=== PATIENT | male | born 1995 | race African-American/Black ===

== ENCOUNTER 2019-08-10 18:34 | Emergency (ER) | payer SELFPAY ==
[~2019-08-10] VITALS: Ht 172.7 cm; Wt 67.1 kg
[2019-08-10 18:39] VITALS: BP 140/63
[2019-08-10] MEDS ORDERED: POLY10DR OS (19:01)
--- NOTE | 2019-08-10 19:02 | PHYS DOC ---
Past Medical History Past Medical History: No Pertinent History Past Surgical History: No Surgical History Smoking Status: Never Smoker Alcohol Use: None Drug Use: None General Adult EDM: Chief Complaint: EYE PROBLEMS HPI: HPI: Patient is a 24 year old male who presents with left eye redness that started today. Patient reports that eye is itchy. He denies injury, crusting or drainage, pain, vision changes, headache or fever. Patient reports that he has been using Visine at home that has helped relieve redness and itching. Patient reports that nothing makes his symptoms worse. He reports that he called into work for this symptom and is needing a work note. Review of Systems: Review of Systems: Complete review of systems is negative unless otherwise documented in the HPI. Heart Score: Risk Factors: Risk Factors: DM, Current or recent (<one month) smoker, HTN, HLP, family history of CAD, obesity. Risk Scores: Score 0 - 3: 2.5% MACE over next 6 weeks - Discharge Home Score 4 - 6: 20.3% MACE over next 6 weeks - Admit for Clinical Observation Score 7 - 10: 72.7% MACE over next 6 weeks - Early Invasive Strategies Allergies: Allergies: Allergies Coded Allergies Type Severity Reaction Last Updated Verified No Known Drug Allergies 11/26/13 No Physical Exam: PE: Constitutional: Well developed, well nourished, no acute distress, non-toxic appearance. [] HENT: Normocephalic, atraumatic, bilateral external ears normal, oropharynx moist, no oral exudates, nose normal. [] Eyes: PERRLA, EOMI; right eye conjunctiva are normal, no drainage; left eye conjunctiva injected, no discharge, no visible foreign body, mild edema to upper and lower eyelid without erythema. [] Neck: Normal range of motion, no stridor. [] Cardiovascular:Heart rate regular rhythm [] Lungs & Thorax: Respirations even and unlabored, no retractions, no respiratory distress [] Skin: Warm, dry, no erythema, no rash. [] Extremities: no cyanosis, no clubbing, ROM intact, no edema. [] Neurologic: Alert and oriented X 3, normal motor function, no focal deficits noted. [] Psychologic: Affect normal, judgement normal, mood normal. [] EKG: EKG: [] Radiology/Procedures: Radiology/Procedures: [] Course & Med Decision Making: Course & Med Decision Making Pertinent Labs and Imaging studies reviewed. (See chart for details) [] Dragon Disclaimer: Dragon Disclaimer: This electronic medical record was generated, in whole or in part, using a voice recognition dictation system. Departure Departure Impression: Primary Impression: Acute conjunctivitis, left eye Qualified Codes: H10.32 - Unspecified acute conjunctivitis, left eye Disposition: HOME, SELF-CARE Condition: STABLE Referrals: NO PCP (PCP) Patient Instructions: Conjunctivitis (Viral and Bacterial) Additional Instructions: Fill the prescription(s) and use as directed if your symptoms worsen or you develop crusting. Apply warm, moist washcloths to eyes needed for comfort. Continue to use the [id number] Visine drops as needed for itching relief . Follow-up with your primary care doctor in 1-2 days. Return to the emergency room if your symptoms worsen. Scripts Polymyxin B Sulf/Trimethoprim (POLYTRIM EYE DROPS) 10 Ml Drops 2 DROP OS Q6HRS for 7 Days, #10 ML 0 Refills Prov: KAREEM BYRNE APRN 08/10/19 Justicifation of Admission Dx: Justifications for Admission: Justification of Admission Dx: N/A KAREEM BYRNE APRN Aug 10, 2019 19:02
== END 2019-08-10 19:08 | disposition home or self-care (01) ==
LOC: ER 18:34
DX: H10.32 Unspecified acute conjunctivitis, left eye (principal)
CPT/HCPCS: 99283

== ENCOUNTER 2021-04-04 10:14 | Emergency (ER) | payer SELFPAY ==
[~2021-04-04] VITALS: Ht 172.7 cm; Wt 63.0 kg
[~2021-04-04 10:14] MED LIST: POLY10DR OS
[2021-04-04 10:27] VITALS: BP 105/58
[2021-04-04] MEDS ORDERED: FLUORESCEIN OPHTH TEST STRIP. OS ONE (10:45)
[2021-04-04] MEDS ORDERED: AMOX500C PO (12:38)
[2021-04-04] MEDS ORDERED: OFLO5DRO4 OS (12:38)
[2021-04-04] MEDS ORDERED: SULF1TAB24 PO (12:38)
--- NOTE | 2021-04-04 12:38 | PHYS DOC ---
Past Medical History Past Medical History: No Pertinent History Past Surgical History: No Surgical History Smoking Status: Never Smoker Alcohol Use: None Drug Use: None General Adult EDM: Chief Complaint: EYE PROBLEMS HPI: HPI: 26-year-old -German male, presents to the ED with complaints of painless red eye started 2 days ago while patient was at work. Patient starts he thought something got in his eye and started rubbing it. Now his left upper eyelid of swollen. Reports purulent drainage from the left eye but no associated blurry vision. Or contact lenses or glasses. Reports vaccines including tetanus is up-to-date. Is not vaccinated for Covid. History of 3 negative Covid tests. Reports no associated foreign body sensation, eye floaters, headache, neck stiffness, fever, sore throat, earache, cough or URI symptoms Review of Systems: Review of Systems: Constitutional: Denies fever or chills. [] Eyes: Denies change in visual acuity or painful vision HENT: Denies nasal congestion or sore throat. [] Respiratory: Denies cough or shortness of breath. [] Cardiovascular: Denies chest pain or edema. [] GI: Denies nausea or vomiting Musculoskeletal: Denies back pain or joint pain. [] Integument: Denies diaphoresis or blistering lesions Neurologic: Denies headache or neck stiffness Psychiatric: Denies depression or anxiety. [] Heart Score: C/O Chest Pain: No Risk Factors: Risk Factors: DM, Current or recent (<one month) smoker, HTN, HLP, family history of CAD, obesity. Risk Scores: Score 0 - 3: 2.5% MACE over next 6 weeks - Discharge Home Score 4 - 6: 20.3% MACE over next 6 weeks - Admit for Clinical Observation Score 7 - 10: 72.7% MACE over next 6 weeks - Early Invasive Strategies Current Medications: Current Medications Medications (Trade) Dose Ordered Sig/Debbie Start Time Stop Time Status Last Admin Dose Admin Fluorescein Sodium (Ful-Misty) 1 strip 1X ONCE 04/04/21 10:45 04/04/21 10:46 DC 04/04/21 10:49 1 STRIP Allergies: Allergies: Allergies Coded Allergies Type Severity Reaction Last Updated Verified No Known Drug Allergies 11/26/13 No Physical Exam: PE: Constitutional: Well developed, well nourished, no acute distress, non-toxic appearance. HENT: Normocephalic, atraumatic, Eyes: Pulls equal and reactive, EOMI, left conjunctival injection with purulent drainage, no ciliary flush, no hazy pupil, no epiphora or sensitivity to light, no fluorescein uptake, no Libby sign, no flat anterior chamber/anterior chamber appears normal, left upper eyelid with swelling and erythema Neck: Normal range of motion, supple, no nuchal rigidity or meningismus Cardiovascular: S1/2 present, regular rhythm Lungs & Thorax: Speaking in full sentences, bilateral equal chest rise, no tachypnea or increased work of breathing Skin: Warm, dry, no erythema, no rash. [] Extremities: No tenderness, no cyanosis, Neurologic: Alert and oriented X 3, normal motor function, normal sensory function, no focal deficits noted. [] Psychologic: Affect normal, judgement normal, mood normal. [] Current Patient Data: Vital Signs: Vital Signs Date Time Temp Pulse Resp B/P (MAP) Pulse Ox O2 Delivery O2 Flow Rate FiO2 04/04/21 10:27 98.2 80 16 105/58 (74) 95 Room Air 98.2 EKG: EKG: [] Radiology/Procedures: Radiology/Procedures: [] Course & Med Decision Making: Course & Med Decision Making Pertinent Labs and Imaging studies reviewed. (See chart for details) Concern for left eye conjunctival injection concerning for bacterial conjunctiv itis and periorbital cellulitis. No evidence of traumatic injury to the eye or foreign body. Patient denies any vision loss. Will discharge home with strict ED return precautions were given for vision loss, fever, headache or pain behind the eye. Encouraged urgent outpatient follow-up with PMD for routine care and consider ophthalmology reevaluation in the next 3 days. Life-threatening processes were considered but are low suspicion at this time, given history, physical exam and ED workup. Pt was educated on all prescription medications and adverse effects. All patient's questions were answered and pt was stable at time of discharge. Life/limb-threatening differential includes but is not limited to, acute angle- closure glaucoma, uveitis, corneal abrasion, CRVO/CRAO, PRES, retinal detachment, vitreous hemorrhage, temporal arteritis, optic neuritis, high- altitude retinopathy foreign body, globe rupture, episcleritis, corneal ulcer, traumatic iritis, hyphema or empyema, orbital cellulitis, orbital hematoma, lens dislocation, orbital wall fracture or toxidrome (digoxin, methanol, anticholinergic, hallucinogenic, etc). I have spoken with the patient and/or caregivers. I explained the patient's condition, diagnoses and treatment plan based on the information available to me at this time. I have answered the patient and/or caregiver's questions and addressed any concerns. The patient and/or caregivers have a good understanding of patient's diagnosis, condition and treatment plan as can be expected at this point. Vital signs have been stable. Patient's condition is stable and appropriate for discharge from the emergency department. Patient will pursue further outpatient evaluation with primary care physician or other designated or consulting physician as outlined in the discharge instructions. The patient and/or caregivers are agreeable to this plan of care and follow-up instructions have been explained in detail. The patient and/or caregivers have received these instructions in written form and have expressed an understanding of the discharge instructions. The patient and/or caregivers are aware that any significant change of condition or worsening of symptoms should prompt immediate return to this or the closest emergency department or call to [facility]. Zehra Disclaimer: Zehra Disclaimer: This electronic medical record was generated, in whole or in part, using a voice recognition dictation system. Departure Departure Impression: Primary Impression: Acute conjunctivitis, left eye Additional Impression: Periorbital cellulitis of left eye Disposition: 01 HOME / SELF CARE / HOMELESS Condition: STABLE Referrals: NO PCP (PCP) Follow-up with your primary care physician for routine care OR FOLLOW UP WITH FAMILY MEDICINE: [address] [facility], [facility] [address] [place] [address] Patient Instructions: Bacterial Conjunctivitis, Periorbital Cellulitis Additional Instructions: FOLLOW UP WITH OPTHALMOLOGY: FOR DEFINITIVE MANAGEMENT of conjunctivitis and periorbital cellulitis, return to ED immediately if you should have any fever, pain or vision loss [facility], [facility] [address] [facility], [address] [place] [address] EMERGENCY DEPARTMENT GENERAL DISCHARGE INSTRUCTIONS Thank you for coming to [facility] Emergency Department (ED) today and trusting us with you care. We trust that you had a positive experience in our Emergency Department. If you wish to speak to the department management, you may call the Director at [phone]. YOUR FOLLOW UP INSTRUCTIONS ARE FOLLOWS: 1. Do you have a private Doctor? If you do not have a private doctor, please ask for a resource list of physicians or clinics that may be able to assist you with follow up care. 2. The Emergency Physicain has interpreted your x-rays. The X-Ray specialist will also review them. If there is a change in the findings, you will be notified in 48 hours when at all possible. 3. A lab test or culture has been done, your results will be reviewed and you will be notified if you need a change in treatment. ADDITIONAL INSTRUCTIONS AND INFORMATION: 1. Your care today has been supervised by a physician who is specially trained in emergency care. Many problems require more than one evaluation for a complete diagnosis and treatment. We recommend that you schedule your follow up appointment as recommended to ensure complete treatment of you illness or injury. If you are unable to obtain follow up care and continue to have a problem, or if your condition worsens, we recommend that you return to the ED. 2. We are not able to safely determine your condition over the phone nor are we able to give sound medical advice over the phone. For these safety reasons, if you call for medical advice we will ask you to come to the ED for further evaluation. 3. If you have any questions regarding these discharge instructions please call the ED at [phone]. SAFETY INFORMATION: In the interest of safety, wellness, and injury prevention; we encourage you to wear your sealbelt, if you smoke; quite smoking, and we encourage family to use a protective helmet for bicycling and other sporting events that present an increased risk for head injury. IF YOUR SYMPTOMS WORSEN OR NEW SYMPTOMS DEVELOP, OR YOU HAVE CONCERNS ABOUT YOUR CONDITION; OR IF YOUR CONDITION WORSENS WHILE YOU ARE WAITING FOR YOUR FOLLOW UP APPOINTMENT; EITHER CONTACT YOUR PRIMARY CARE DOCTOR, THE PHYSICIAN WHOSE NAME AND NUMBER YOU WERE GIVEN, OR RETURN TO THE ED IMMEDIATELY. Scripts Ofloxacin (Ofloxacin) 5 Ml Drops 1 DROP OS QID for 10 Days, #5 ML 0 Refills Prov: DREW ROBERTSON DO 04/04/21 Amoxicillin (AMOXICILLIN) 500 Mg Capsule 1 CAP PO Q8HRS for infection for 7 Days, #21 CAP Prov: DREW ROBERTSON DO 04/04/21 Sulfamethoxazole/Trimethoprim (BACTRIM DS TABLET) 1 Each Tablet 1 TAB PO BID for 7 Days, #14 TAB 0 Refills Prov: DREW ROBERTSON DO 04/04/21 DREW ROBERTSON DO Apr 04, 2021 12:38
== END 2021-04-04 12:50 | disposition home or self-care (01) ==
LOC: ER 10:14
DX: H10.32 Unspecified acute conjunctivitis, left eye (principal); L03.213 Periorbital cellulitis
CPT/HCPCS: 99283